=== PATIENT | male | born 1960 | race Caucasian/White ===

== ENCOUNTER 2018-11-04 10:35 | Emergency (ER) | payer SELFPAY ==
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
[2018-11-04 12:41] VITALS: BP 132/78
== END 2018-11-04 12:31 | disposition home or self-care (01) ==
LOC: ER 10:35
DX: S80.01XA Contusion of right knee, initial encounter (principal); W19.XXXA Unspecified fall, initial encounter; Y92.814 Boat as the place of occurrence of the external cause; M19.90 Unspecified osteoarthritis, unspecified site; M25.461 Effusion, right knee; M25.561 Pain in right knee; I10 Essential (primary) hypertension
CPT/HCPCS: 99283; 73564; L1830